=== PATIENT | male | born 1990 | race Caucasian/White ===

== ENCOUNTER 2016-03-06 23:27 | Emergency (ER) | payer BC ==
[~2016-03-06] VITALS: Ht 198.1 cm; Wt 87.5 kg
[2016-03-06 23:33] VITALS: BP 123/74; PULSE 114; RESP 18; TEMP 100; O2SAT 95
[2016-03-07] MEDS ORDERED: IBUPROFEN 600 MG TABLET PO ONE (00:15)
[2016-03-07] MEDS ORDERED: NACL 0.9% 1,000 ML IV ONE ×2 (00:15→02:30)
[2016-03-07] MEDS ORDERED: IPRATROPIUM/ALBUTEROL SULFATE 3 ML AMPUL.NEB INH ONE (00:15)
[2016-03-07] MEDS ORDERED: ONDANSETRON HCL 4 MG/2 ML VIAL IVP ONE (00:15)
[2016-03-07 01:25] LABS: BASOPHILS % (AUTO) 0.6 % (0.0-2.0); EOSINOPHILS # (AUTO) 0.1 K/uL (0.0-0.4); EOSINOPHILS % (AUTO) 0.8 % (0.0-4.0); HEMATOCRIT 41.1 % (36-54); LYMPHOCYTES # (AUTO) 1.1 K/uL (1.0-5.5); LYMPHOCYTES % (AUTO) 15.5 % (20.5-51.5); MEAN CORPUSCULAR HEMOGLOBIN 29 pg (27-31); MEAN CORPUSCULAR HGB CONC 34 % (32-36); MEAN CORPUSCULAR VOLUME 86 fL (79.0-98.0); MONOCYTES # (AUTO) 0.6 K/uL (0.0-1.0); MONOCYTES % (AUTO) 8.5 % (1.7-9.3); NEUTROPHILS # (AUTO) 5.4 K/uL (1.8-7.7); NEUTROPHILS % (AUTO) 74.6 % (40.0-70.0); PLATELET COUNT (AUTO) 244 K/uL (130-430); RED BLOOD CELL COUNT(AUTO) 4.76 MIL/uL (4.2-6.2); RED CELL DISTRIBUTION WIDTH 11.9 % (9.0-15.0); WHITE BLOOD COUNT (AUTO) 7.2 K/uL (4.8-10.8)
[2016-03-07 01:38] LABS: CALCIUM 8.3 mg/dL (8.4-11.0); CREATININE 1.04 mg/dL (0.55-1.30); POTASSIUM 3.6 mmol/L (3.5-5.1)
[2016-03-07 01:42] LABS: ALBUMIN 3.3 g/dL (3.4-4.8); TOTAL BILIRUBIN 0.5 mg/dL (0.0-1.0); TOTAL PROTEIN, SERUM 7.3 g/dL (6.4-8.3)
[2016-03-07 03:56] VITALS: BP 132/87; PULSE 96; RESP 20; TEMP 98.7; O2SAT 98
== END 2016-03-07 03:56 | disposition home or self-care (01) ==
LOC: SED 23:27
DX: J18.9 Pneumonia, unspecified organism (principal); R11.2 Nausea with vomiting, unspecified; J45.909 Unspecified asthma, uncomplicated; Z88.1 Allergy status to other antibiotic agents
CPT/HCPCS: 36415; 71010; 80053; 85025; 86308; 94640; 96361; 96374; 99285; J2405; J7030